=== PATIENT | male | born 1960 | race African-American/Black ===

== ENCOUNTER 2016-07-20 17:45 | Emergency (ER) | payer OTHER ==
[~2016-07-20] VITALS: Ht 170.2 cm; Wt 94.5 kg
[2016-07-20 17:51] VITALS: BP 178/95; PULSE 51; RESP 16; O2SAT 97
[2016-07-20] MEDS ORDERED: Lidocaine 2% 6mL Topical Jelly ONE (18:25)
[2016-07-20] MEDS ORDERED: Lidocaine 2% 6mL Topical Jelly TOPICAL ONE (18:30)
--- NOTE | 2016-07-20 18:41 | ED.REPORT ---
HPI- Male Date of Service July 20, 2016 ED Provider: Fidencio Pulido MD The patient is a 56 year old male with a history of enlarged prostate who presents to the ED reporting urinary retention onset today. Associated symptoms include abdominal distention, lower abdominal pain, and mild dysuria recently. The patient denies nausea, vomiting, fevers, flank pain, or other symptoms. He took Flomax x2 today at 1600, with no relief. The patient has had similar symptoms in the past, is followed by Dr Rivas for urology. Nursing Notes Stated Complaint: BLOATED STOMACH,UNABLE TO URINATE Chief Complaint: Male Abdominal Pain Nursing Notes Reviewed: Yes Allergies: Coded Allergies: No Known Allergies (Unverified Allergy, Unknown, 07/20/16) General Time Seen by MD: 18:40 Chief Complaint Unable to urinate Hx Obtained From: Patient Arrived By: Walk-in Onset Occurred: 5 - 8 hours ago Symptom Duration: Since onset Location: : Abdomen lower Quality: Painful Severity: Current: Moderate Severity: Maximum: Moderate Pertinent Negative: Relieved by nothing Recent Healthcare: No recent doctor visit Similar Sx Previous: No Past Medical History Past Medical History Enlarged Prostate Sleep apnea Past Surgical History Ankle Shoulder Smoking History Unknown if Ever Smoker Social History Other Social History: Good social support, Ambulatory Status Independent Review of Systems Review of Systems Note: + Abdominal distention Constitutional: Denies: Fever GI: Reports: Abdominal pain (Lower), Denies: Nausea, Vomiting Male: Reports Dysuria, Reports Urination decreased, Denies Flank pain Complete sys rev & neg: except as marked. Respiratory: Denies: Non-productive cough, Shortness of breath Physical Exam Initial Vital Signs Vital Signs (First) Date Time Temp Pulse Resp B/P Pulse Ox O2 Delivery O2 Flow Rate FiO2 07/20/16 17:51 36.6 51 16 178/95 97 Room Air Initial VS: Reviewed Head / Eyes: Atraumatic, Normocephalic ENT: Conjunctiva normal, No scleral icterus Skin: Warm, Dry, No cyanosis Neurologic: Alert, Oriented, Nonfocal Psychiatric: Mood/affect normal, Behavior normal, Normal thought content General/Constitutional: Awake, Alert Abdomen: Soft, BS normoactive Bladder not palpable Interpretation & Diagnostics Interpretation & Diagnostics: Pt unable to void, 750cc in bladder Lab Results Interpretation Test 07/20/16 18:43 5/24/17 18:49 Urine Color Straw (YELLOW) Urine Appearance Clear (CLEAR,HAZY) Urine pH 6.0 (5.0-8.0) Urine Specific [place] 1.010 (1.003-1.035) Urine Protein Negativemg/dL (NEG,TRACE) Urine Glucose (UA) Negativemg/dL (NEGATIVE) Urine Ketones Negativemg/dL (NEGATIVE) Urine Occult Blood Negative (NEGATIVE) Urine Nitrite Negative (NEGATIVE) Urine Bilirubin Negative (NEGATIVE) Urine Urobilinogen Normalmg/dL (NORMAL) Urine Leukocyte Esterase Negative (NEGATIVE) Urine RBC 0-2/hpf (0-2) Urine WBC 0-5/hpf (0-5) Urine Epithelial Cells None/hpf (NONE-MOD) Urine Crystals None seen (NONE SEEN) Urine Bacteria None/hpf (NONE-FEW) Urine Hyaline Casts None/lpf (NONE) Urine Granular Casts None seen (NONE SEEN) Urine Waxy Casts None seen (NONE SEEN) Urine Red Blood Cell Casts None seen (NONE SEEN) Urine White Blood Cell Casts None seen (NONE SEEN) Urine Mucus None seen (None Seen) Urine Trichomonas None seen (NONE SEEN) Urine Yeast None (NONE SEEN) Urinalysis Comment None Urine Culture Reflexed Not indicated Hold Urine Received (Received) Re-Eval/Medical Decision Re-Evaluation/Progress : Time of Eval: 20:10 Patient Status: Condition improved Re-Evaluation/Progress Note: Discussed with patient lab results, diagnosis, and plan for discharge. Follow-up and return to the ER instructions given. Patient agrees with plan for care and all questions were addressed. Counseled Regarding: Diagnosis, Lab results, Need for follow-up, When/why to return to ED Discharge & Departure Impression: Primary Impression: Acute urinary retention Disposition: Home Discharge Condition All VS Reviewed: Yes Condition: Improved Patient Instructions: Iglesias Catheter Placement and Care (ED) Additional Instructions: Emergency department this evening we placed a Iglesias catheter because of an inability to void. Greater than 750 mL of urine was obtained. On urinalysis there is no suggestion of a urinary tract infection. Iglesias catheter with leg bag will be continued. Follow-up with urology within the next week. ) Return to emergency department for fevers shaking chills or problems with the catheter. Referrals: Shanna Lanier (PCP) Amrit Rivas MD Scribe Attestation Portions of this note were transcribed by Silvia Brown. I, Dr. Pulido, personally performed the history, physical exam, and medical decision-making; I reviewed and confirmed the accuracy of the information in the transcribed note. Signed by: Moraima Butler, 07/20/2016, 20:20 copies to: Amrit Rivas MD; Shanna Lanier Donald L MD July 20, 2016 18:41 SILVIA BROWN July 20, 2016 19:12
[2016-07-20 19:15] LABS: APPEARANCE,URINE CLEAR (CLEAR,HAZY); COLOR,URINE STRAW (YELLOW); OCCULT BLOOD,URINE NEGATIVE (NEGATIVE); UROBILINOGEN,URINE NORMAL (NORMAL)
[2016-07-20 19:16] VITALS: BP 132/78; PULSE 56; RESP 16; O2SAT 97
[2016-07-20 20:42] VITALS: BP 131/77; PULSE 60; RESP 16; O2SAT 97
[2016-07-21] MEDS ORDERED: PHEN-777 PO (23:08)
[2016-07-21] MEDS ORDERED: CIPR-198 PO (23:08)
== END 2016-07-20 20:44 | disposition home or self-care (01) ==
LOC: SED 17:45
DX: R33.9 Retention of urine, unspecified (principal); R14.0 Abdominal distension (gaseous); R10.30 Lower abdominal pain, unspecified

== ENCOUNTER 2016-07-21 19:03 | Emergency (ER) | payer OTHER ==
[~2016-07-21] VITALS: Ht 170.2 cm; Wt 90.9 kg
[2016-07-21 19:06] VITALS: BP 117/81; PULSE 72; RESP 16; O2SAT 97
--- NOTE | 2016-07-21 19:58 | ED.REPORT ---
HPI- Male Date of Service July 21, 2016 ED Provider: Edward Cortez MD Patient is a 56 year old male with a history of enlarged prostate and hypertension who presents to the ED complaining of blood and clots in his verma. The patient reports urinary retention and had a catheter placed yesterday due to this. Once he left the ED, the patient became nauseous and had a syncopal event. He denies feeling dizzy or lightheaded before the episode. Patient reports that he took 2 Flomax yesterday. The patient has taken Flomax in May and did not experience any syncopal events, dizziness or lightheadedness. Associated symptoms include chills and difficulty urinating even with the catheter placed. Patient currently takes ASA. Nursing Notes Stated Complaint: CATHETER PAIN,BLEEDING Chief Complaint: General Complaint Nursing Notes Reviewed: Yes (Travergence not reconciled) Allergies: Coded Allergies: No Known Allergies (Verified Allergy, Unknown, 07/21/16) Scheduled Ciprofloxacin (Ciprofloxacin) 500 Mg Tablet 500 MG PO BID Scheduled PRN Phenazopyridine (Phenazopyridine) 200 Mg Tablet 200 MG PO TID PRN PRN dysuria General Time Seen by MD: 19:56 Chief Complaint Blood in urine Hx Obtained From: Patient Arrived By: Walk-in Onset Occurred: Yesterday Symptom Duration: Since onset Recent Healthcare: Recent doctor visit Past Medical History Past Medical History Notes: Seen in ED yesterday for urinary retention Urologist: Dr. Rivas Past Medical History Enlarged Prostate Sleep apnea Reports: Hypertension Past Surgical History Ankle Shoulder Smoking History Unknown if Ever Smoker Social History Other Social History: Good social support, Ambulatory Status Independent Review of Systems Constitutional: Reports: Chills, Denies: Fever GI: Reports: Nausea Male: Reports Dysuria, Reports Hematuria Complete sys rev & neg: except as marked. Respiratory: Denies: Non-productive cough, Shortness of breath Neurologic: Reports: Syncope, Denies: Dizziness, Lightheaded Physical Exam Initial Vital Signs Vital Signs (First) Date Time Temp Pulse Resp B/P Pulse Ox O2 Delivery O2 Flow Rate FiO2 07/21/16 19:06 37.7 72 16 117/81 97 Room Air Initial VS: Reviewed, Vital signs normal Male Genitourinary: Atraumatic, Inspection NL blood in folly full bladder General/Constitutional: Awake, Alert Abdomen: Atraumatic, Soft, Non-tender Skin: Atraumatic, Color NL, No rash, Warm, Dry Head / Eyes: Atraumatic, Normocephalic, PERRL, EOMI Respiratory / Chest: Atraumatic, No respiratory distress Neurologic: Oriented X3, Speech NL, No motor deficits, No sensory deficits Psychiatric: Affect NL, Mood NL Interpretation & Diagnostics Lab Results Interpretation Result Diagram: 07/21/16204907/21/162049 Test 07/21/16 20:50 07/21/16 21:03 White Blood Count 10.9th/mm3 (3.8-10.1) Red Blood Count 5.23mil/mm3 (4.40-5.80) Hemoglobin 15.8g/dL (13.8-17.2) Hematocrit 44.0% (41.0-50.0) Mean Corpuscular Volume 84.1fL (81-100) Mean Corpuscular Hemoglobin 30.2pg (27.0-35.0) Mean Corpuscular Hemoglobin Concent 35.9% (32.0-37.0) Red Cell Distribution Width 13.3% (12.3-15.4) Platelet Count 169bil/L (150-400) Neutrophils (%) (Auto) 64.0% (40-74) Lymphocytes (%) (Auto) 23.8% (14-46) Monocytes (%) (Auto) 9.8% (4-12) Eosinophils (%) (Auto) 2.0% (0-5) Basophils (%) (Auto) 0.2% (0-3) Sodium Level 137mEq/L (134-144) Potassium Level 3.4mEq/L (3.5-5.2) Chloride Level 97mEq/L (97-108) Carbon Dioxide Level 26mmol/L (18-29) Blood Urea Nitrogen 14mg/dL (6-24) Creatinine 0.77mg/dL (0.76-1.27) Estimat Glomerular Filtration Rate 112mL/min (>59) Glucose Level 141mg/dL (60-99) Calcium Level 9.9mg/dL (8.5-10.1) Total Bilirubin 1.1mg/dL (0.0-1.2) Aspartate Amino Transf (AST/SGOT) 26U/L (0-50) Alanine Aminotransferase (ALT/SGPT) 40U/L (0-44) Alkaline Phosphatase 52U/L (25-150) Total Protein 7.2g/dL (6.4-8.4) Albumin 3.9g/dL (3.4-5.0) Urine Color Bloody (YELLOW) Urine Appearance Clear (CLEAR,HAZY) Urine pH 5.5 (5.0-8.0) Urine Specific [place] 1.028 (1.003-1.035) Urine Protein 100mg/dL (NEG,TRACE) Urine Glucose (UA) Negativemg/dL (NEGATIVE) Urine Ketones Negativemg/dL (NEGATIVE) Urine Occult Blood Large (NEGATIVE) Urine Nitrite Negative (NEGATIVE) Urine Bilirubin Negative (NEGATIVE) Urine Urobilinogen Normalmg/dL (NORMAL) Urine Leukocyte Esterase Small (NEGATIVE) Urine RBC Packed/hpf (0-2) Urine WBC 6-10/hpf (0-5) Urine Epithelial Cells Occasional/hpf (NONE-MOD) Urine Crystals None seen (NONE SEEN) Urine Bacteria Few/hpf (NONE-FEW) Urine Hyaline Casts None/lpf (NONE) Urine Granular Casts None seen (NONE SEEN) Urine Waxy Casts None seen (NONE SEEN) Urine Red Blood Cell Casts None seen (NONE SEEN) Urine White Blood Cell Casts None seen (NONE SEEN) Urine Mucus None seen (None Seen) Urine Trichomonas None seen (NONE SEEN) Urine Yeast None (NONE SEEN) Urinalysis Comment None Urine Culture Reflexed Indicated ECG Interpretation ECG Interpretation: no acute ischemic abnormalities no pre excitation syndrome no cause of syncope Time: 20:39 Interpreted by: ED physician Normal ECG Interpretation: Normal rate (62), Normal sinus rhythm Re-Eval/Medical Decision Source of Hx: Old records Re-Evaluation/Progress #1: Time of Eval: 22:22 Patient Status: Mild relief Re-Evaluation/Progress #2: Time of Eval: 23:50 Re-Evaluation/Progress Note: Discussed how to irrigate verma at home in case his symptoms return. Discussed results and plan for discharge. The patient understands and agrees to the plan for discharge. All questions were addressed. Consultation : Referral / Consult Name: Amrit Rivas MD Consulted With: Urology Call Returned at: 23:41 Food Storeroom Clerk: Agrees with eval, Agrees with plan Counseled Regarding: Diagnosis, Lab results, Need for follow-up, When/why to return to ED Discharge & Departure Impression: Primary Impression: Acute urinary retention Additional Impressions: Urinary tract infection Urinary tract infection type: site unspecified Hematuria presence: with hematuria Qualified Code: N39.0 - Urinary tract infection, site not specified Hematuria Disposition: Home Discharge Condition All VS Reviewed: Yes Condition: Stable Additional Instructions: 1. You develop some clots that appeared to walk to the drainage of the Verma catheter. However the catheters and flushed, and is draining well now. It is still too early to remove the catheter at this point. 2. Your urine today test today did reveal a few markers of a potentially developing infection, and with your description of chills we have started you on the antibiotic ciprofloxacin. Take 500 mg twice a day for 10 days. 3. He described an episode of syncope yesterday. However your blood tests, EKG were normal with no dangerous cause. Sometimes the Flomax that he started- vertically at the double dose you are taking, pink contribute to syncope. Your blood pressure was normal here, so we do not know for sure if it is the case. Make sure you are drinking plenty of fluids. 4. Try the medication phenazopyridine 200mg three times a day for discomfort. ( Is a bladder numbing agent. Please note that it does have a side effect of causing the urine to turn orange.) 5. Call Dr. Rivas's office tomorrow. 6. Return again if new or worsening symptoms Referrals: Shanna Lanier (PCP) Moraima Attestation Portions of this note were transcribed by Maria A Nova. I, Dr. Cortez personally performed the history, physical exam and medical decision-making; I reviewed and confirmed the accuracy of the information in the transcribed note. Signed by: Moraima Jones, 07/21/16 and 0152 copies to: Shanna Lanier Matthew F MD July 21, 2016 19:58 Irma Nova July 21, 2016 20:36
[2016-07-21 20:54] LABS: BASOPHILS % (AUTO) 0.2 % (0-3); MONOCYTES % (AUTO) 9.8 % (4-12); Mean Corpuscular Hemoglobin 30.2 pg (27.0-35.0); Mean Corpuscular Volume 84.1 fL (81-100); Platelet Count 169 bil/L (150-400)
[2016-07-21 21:21] LABS: APPEARANCE,URINE CLEAR (CLEAR,HAZY); COLOR,URINE BLOODY (YELLOW)
[2016-07-21 21:22] LABS: OCCULT BLOOD,URINE LARGE (NEGATIVE); PH,URINE 5.5 (5.0-8.0); UROBILINOGEN,URINE NORMAL (NORMAL)
[2016-07-21] MEDS ORDERED: Phenazopyridine 97.5 mg Tablet PO ONE (22:25)
[2016-07-21] MEDS ORDERED: CIPR-198 PO (23:08)
[2016-07-21] MEDS ORDERED: PHEN-777 PO (23:08)
[2016-07-21] MEDS ORDERED: _HYDROcodone/APAP 5-325 mg Tablet PO PRN (23:10)
[2016-07-21 23:59] VITALS: PULSE 78; RESP 18
== END 2016-07-21 23:59 | disposition home or self-care (01) ==
LOC: SED 19:03
DX: R33.9 Retention of urine, unspecified (principal); N39.0 Urinary tract infection, site not specified; R31.9 Hematuria, unspecified; I10 Essential (primary) hypertension